=== PATIENT | female | born 2000 | race Caucasian/White ===

== ENCOUNTER → 2018-04-27 | Outpatient (CLI) | payer BC ==
[~2018-04-27] MED LIST: NITR-105 PO
== END ==
LOC: LAB 10:33
PROVIDERS: ATTEND Urology
DX: Z02.9 Encounter for administrative examinations, unspecified (principal)

== ENCOUNTER → 2018-04-27 | Outpatient (CLI) | payer BC | LOC: LAB 11:19 | PROVIDERS: ATTEND Urology | DX: R10.30 Lower abdominal pain, unspecified (principal); R82.79 Other abnormal findings on microbiological examination of urine | CPT/HCPCS: 81001; 87088 ==

== ENCOUNTER → 2018-05-05 | Outpatient (CLI) | payer BC ==
--- NOTE | 2018-05-05 16:10 | RADIOLOGY IMAGING REPORT ---
FACILITY: [facility] PATIENT NAME: Key Flores : 2000 MR: [id number] V: [id number] EXAM DATE: ORDERING PHYSICIAN: MIRI FLORES TECHNOLOGIST: Location: [facility] [place] Patient: Key Flores : 2000 Visit/Account:[id number] Date of Sevice: 05/05/2018 KIDNEYS EXAMINATION: Renal ultrasound. History: Low abdomen pain and frequent UTIs COMPARISON STUDIES: FINDINGS: Kidneys: Right kidney- 9.4 x 3.8 x 4.9 cm cm Left kidney- 9.5 x 6.1 x 5.4 cm cm Uniform and symmetric blood flow in each kidney by Doppler ultrasound. Hydronephrosis: none Resistive index on the right 0.57 and on the left 0.56. There is mild pelvocaliectasis on the right prior to patient voiding however this resolved following bladder emptying Bladder: Prevoid volume 270 mL. Post void residual 30.7 mm. Bilateral ureteral jets are present Abdominal aorta and IVC: Aorta and IVC are patent by Doppler ultrasound. IMPRESSION: There is mild pelvocaliectasis on the right prior to bladder emptying however this resolved following patient voiding Report Dictated By: Laura Reid MD at 05/05/2018 4:03 PM Report E-Signed By: Laura Reid MD at 05/05/2018 4:05 PM WSN:[email or web address]
== END ==
LOC: US 02:08
PROVIDERS: ATTEND Urology
DX: R10.30 Lower abdominal pain, unspecified (principal); N39.0 Urinary tract infection, site not specified
CPT/HCPCS: 76705

== ENCOUNTER → 2018-06-22 | Outpatient (CLI) | payer BC ==
--- NOTE | 2018-06-22 14:54 | RADIOLOGY IMAGING REPORT ---
FACILITY: [facility] PATIENT NAME: Key Flores : 2000 MR: [id number] V: [id number] EXAM DATE: ORDERING PHYSICIAN: MIRI FLORES TECHNOLOGIST: Location: [facility] Patient: Key Flores : 2000 Visit/Account:[id number] Date of Sevice: 06/22/2018 KIDNEYS EXAMINATION: Renal ultrasound. History: Frequent UTIs, left lower quadrant pain COMPARISON STUDIES: May 05, 2018 FINDINGS: Kidneys: Right kidney- 10.5 x 3.9 x 3.9 cm Left kidney- 9.5 x 5 x 4 cm Uniform and symmetric blood flow in each kidney by Doppler ultrasound. Hydronephrosis: none Assistive index on the right 0.63 and on the left 0.62 Bladder: Prevoid volume 383 mL. Post for residual 8.5 mL. Bilateral ureteral jets are present. Abdominal aorta and IVC: Aorta and IVC are patent by Doppler ultrasound. IMPRESSION: Unremarkable bilateral renal ultrasound with no evidence of hydronephrosis at this time. Report Dictated By: Laura Reid MD at 06/22/2018 2:30 PM Report E-Signed By: Larua Reid MD at 06/22/2018 2:50 PM WSN:[email or web address]
== END ==
LOC: US 00:22
PROVIDERS: ATTEND Urology
DX: N39.0 Urinary tract infection, site not specified (principal); R10.30 Lower abdominal pain, unspecified
CPT/HCPCS: 76705